=== PATIENT | female | born 1945 | race Caucasian/White ===

== ENCOUNTER 2016-04-12 14:40 | Observation (INO) | payer OTHER, BC ==
[~2016-04-12] VITALS: Ht 157.5 cm; Wt 50.0 kg
[~2016-04-12 14:40] MED LIST: AZELASTINE205.5 MCG/ BOTH NARES; CLARITIN10 M3 PO; EPIPEN ADU0.3 MG/0.3 IM; LISINOPRIL20 MG PO
[2016-04-12 16:55] LABS: HEMATOCRIT 39.9 % (36.0-46.0); MCH 30.3 PG (29.0-34.0); MCHC 33.8 G/DL (30.0-36.0); MCV 89.7 FL (83-99); MEAN PLAT.VOLUME 10.5 uM^3 (9.5-12.4); PLATELET COUNT 226 K/uL (156-360); RBC DIS.WIDTH-CV 12.5 % (11.8-14.6); RED BLOOD COUNT 4.45 M/uL (3.80-5.20); WHITE BLOOD COUNT 8.2 K/uL (4.1-10.2)
[2016-04-12 17:04] LABS: PROTHROMBIN TIME 10.2 (9.2-11.2); PTT 27.8 (25-32)
[2016-04-12 17:06] LABS: CHLORIDE 105 mEq/L (99-109)
[2016-04-12 17:07] LABS: SODIUM 140 mEq/L (136-147)
[2016-04-12 17:08] LABS: GLUCOSE 96 mg/dL (70-99)
[2016-04-12 17:10] LABS: ANION GAP 10 MEQ/L (2-14)
[2016-04-12 17:12] LABS: GFR ESTIMATE (CALCULATED) > 59 mL/min/
[2016-04-12 17:13] LABS: UREA NITROGEN (BUN) 17 mg/dL (9-23)
[2016-04-12 17:15] LABS: TROP-I INTERPRETATION NEGATIVE; TROPONIN-I < 0.01 ng/mL (0.0-0.30)
[2016-04-12] MEDS ORDERED: LOSARTAN POTASS25 MG PO (18:58)
[2016-04-12] MEDS ORDERED: MONTELUKAST SOD10 MG PO (18:59)
[2016-04-12 20:28] LABS: TOTAL BILIRUBIN 0.7 mg/dL (0.0-1.0)
[2016-04-12 20:29] LABS: ALKALINE PHOSPHATASE 142 IU/L (3-129)
[2016-04-12 20:31] LABS: DIRECT BILIRUBIN 0.2 mg/dL (0.0-0.3)
[2016-04-12 20:32] LABS: LIPASE 18 U/L (1.0-51.0)
[2016-04-12 21:25] VITALS: BP 157/72
[2016-04-12 22:25] VITALS: BP 166/80
[2016-04-12 23:30] LABS: TROP-I INTERPRETATION NEGATIVE; TROPONIN-I 0.01 ng/mL (0.0-0.30)
[2016-04-13 01:11] VITALS: BP 138/74
[2016-04-13 05:05] VITALS: BP 130/59
[2016-04-13 05:11] LABS: TROP-I INTERPRETATION NEGATIVE; TROPONIN-I 0.01 ng/mL (0.0-0.30)
[2016-04-13 08:00] VITALS: BP 142/67
[2016-04-13 12:01] VITALS: BP 134/87
[2016-04-13] MEDS ORDERED: LABETALOL HCL100 MG PO (14:26)
== END 2016-04-13 15:03 | disposition home or self-care (01) ==
LOC: EME 14:40 → EDOF 19:51 → 5WEST 19:51 → EDOF 19:51 → 5WEST 20:42
PROVIDERS: Emergency Medicine; Hospitalist
DX: R07.9 Chest pain, unspecified (principal); I10 Essential (primary) hypertension; R94.31 Abnormal electrocardiogram [ECG] [EKG]; R06.02 Shortness of breath; R42 Dizziness and giddiness; R61 Generalized hyperhidrosis; Z87.891 Personal history of nicotine dependence; Z80.1 Family history of malignant neoplasm of trachea, bronchus and lung; Z88.8 Allergy status to other drugs, medicaments and biological substances
CPT/HCPCS: 71020; 71275; 80048; 80076; 83690; 84484; 85027; 85610; 85730; 86850; 86900; 86901; 93005; 99281; 99285; G0378; J7040